=== PATIENT | female | born 1995 | race Hispanic/Latino ===

== ENCOUNTER 2020-02-12 03:27 | Emergency (ER) | payer SELFPAY ==
[2020-02-12 04:05] LABS: #Basophils 0.1 thou/uL (0.0-0.2); #Eosinphils 0.1 thou/uL (0.0-0.7); #Lymphocytes 3.3 thou/uL (1.20-3.40); #Monocytes 0.5 thou/uL (0.11-0.59); %Basophils 0.9 % (0.0-1.0); %Eosinophils 0.5 % (0.0-10.0); %Lymphocytes 27.7 % (21.0-51.0); %Monocytes 4.1 % (0.0-10.0); %Neutrophils 66.8 % (42.0-75.0); Mean Corpuscular HGB CONC 33.3 g/dL (32.0-36.0); Mean Corpuscular Volume 93.1 fL (78.0-98.0); Platelet Count 311 thou/uL (130-400); RBC Distribution Width 12.2 % (11.5-14.5); Red Blood Cell (RBC) Count 4.52 mill/uL (4.20-5.40)
[2020-02-12 04:15] LABS: BHCG - Serum Negative (NEGATIVE); Pregs Control Background? CLEAR/WHITE (CLR/WHITE); Pregs Control Bar Appear? YES (CONTROL BAR)
[2020-02-12 04:31] LABS: ALT (SGPT) 16 U/L (8-55); AST (SGOT) 20 U/L (5-34); Albumin 4.9 g/dL (3.5-5.0); Alkaline Phosphatase 80 U/L (40-110); Anion Gap 15 mmol/L (10-20); BUN (Urea Nitrogen) 8 mg/dL (7.0-18.7); Bilirubin, Total 0.5 mg/dL (0.2-1.2); Calc. Creatinine Clearance 0 mL/min (70-130); Calcium 9.8 mg/dL (7.8-10.44); Carbon Dioxide 25 mmol/L (22-29); Chloride 103 mmol/L (98-107); Estimated GFR-MDRD Greater than 90; Globulin 3.2 g/dL (2.4-3.5); Glucose 123 mg/dL (70-105); Protein, Total 8.1 g/dL (6.0-8.3); Sodium 140 mmol/L (136-145)
[2020-02-12 04:45] LABS: Thyroid Stimulating Hormone 0.5752 uIU/mL (0.35-4.94)
[2020-02-12 04:51] LABS: Potassium 2.7 mmol/L (3.5-5.1)
--- NOTE | 2020-02-12 07:54 | RAD ---
RADIOGRAPH CHEST 1 VIEW: DATE: 02/12/2020 HISTORY: 24-year-old female with chest pain and dyspnea FINDINGS: The visualized lung garcia are clear. The cardiomediastinal silhouette and hilar shadows are normal. The lateral costophrenic angles are sharp. The osseous structures appear normal. There is no pneumothorax. IMPRESSION: Negative.
[2020-02-12] MEDS ORDERED: Iopamidol 370 76% 100 ML VIAL ONE (09:44)
--- NOTE | 2020-02-12 14:54 | CT ---
PRELIMINARY REPORT/[facility]/EMERGENCY AFTER HOURS PROCEDURE: EXAM: CTA Chest with Intravenous Contrast CLINICAL HISTORY: PT C/O CHEST PAIN/SOB/SORE THROAT. TECHNIQUE: Axial CTA images of the chest with intravenous contrast. MIP reconstructed images were cre ated and reviewed. CONTRAST: With; ISOVUE 370,100mL COMPARISON: None provided. FINDINGS: PULMONARY ARTERIES There is no intraluminal filling defect suspicious for PE. AORTA No thoracic aortic aneurysm or dissection. LUNGS The lungs are clear. No pulmonary mass. No focal airspace consolidation. PLEURAL SPACES No pleural effusion. No pneumothorax. HEART AND MEDIASTINUM No cardiomegaly. No significant pericardial effusion. LYMPH NODES No lymphadenopathy. BONES No focal osseous abnormality or acute fracture. CHEST WALL AND UPPER ABDOMEN Images through the upper abdomen are unremarkable. The chest wall is u nremarkable. IMPRESSION: Unremarkable CTA of the chest. ELECTRONICALLY SIGNED BY: Millie Navarrete MD February 12, 2020 5:06:14 AM CDT FINAL REPORT: EMERGENT AFTER HOURS CT ANGIOGRAM THORAX WITH IV CONTRAST AND 3D RECONSTRUCTIONS: HISTORY: Chest pain, shortness of breath, and sore throat. COMPARISON: None. IMPRESSION: 1. No filling defects are seen in the pulmonary arteries to suggest a pulmonary embolus. 2. Thoracic aorta is normal in caliber without evidence of an aortic dissection. 3. Lungs are clear. 4. Findings are in agreement with the preliminary report by [facility]. Transcribed Date/Time: 02/12/2020 3:22 PM
--- NOTE | 2020-02-14 15:42 | EKG ---
Test Reason : Blood Pressure : / mmHG Vent. Rate : 134 BPM Atrial Rate : 134 BPM P-R Int : 128 ms QRS Dur : 074 ms QT Int : 296 ms P-R-T Axes : 057 072 027 degrees QTc Int : 442 ms Sinus tachycardia Possible Left atrial enlargement No STEMI Borderline ECG Confirmed by ANUM CID M.D. ([id number]), website/blog editor THERESA TORRES ([id number] on 02/14/2020 3:41:36 PM Referred By: Confirmed By:ANUM CID M.D.
== END 2020-02-12 06:40 | disposition home or self-care (01) ==
LOC: ERS 03:27
DX: R00.2 Palpitations (principal)
CPT/HCPCS: 71045; 71275; 80053; 84443; 84484; 84703; 85025; 93005; Q9967

== ENCOUNTER 2021-02-23 22:39 | Emergency (ER) | payer SELFPAY ==
[2021-02-23 23:49] LABS: #Basophils 0.1 thou/uL (0.0-0.2); #Eosinphils 0.3 thou/uL (0.0-0.7); #Lymphocytes 3.6 thou/uL (1.20-3.40); #Monocytes 0.5 thou/uL (0.11-0.59); %Basophils 0.6 % (0.0-1.0); %Eosinophils 2.2 % (0.0-10.0); %Lymphocytes 28.8 % (21.0-51.0); %Monocytes 4.3 % (0.0-10.0); %Neutrophils 64.1 % (42.0-75.0); Hemoglobin 13.5 g/dL (12.0-16.0); Mean Corpuscular HGB CONC 34.7 g/dL (32.0-36.0); Mean Corpuscular Hemoglobin 31.2 pg (27.0-31.0); Mean Corpuscular Volume 89.9 fL (78.0-98.0); Mean Platelet Volume 8.3 fL (7.4-10.4); Platelet Count 271 thou/uL (130-400); RBC Distribution Width 11.6 % (11.5-14.5); Red Blood Cell (RBC) Count 4.32 mill/uL (4.20-5.40); White Blood Cell (WBC) Count 12.5 thou/uL (4.8-10.8)
[2021-02-24 00:10] LABS: Bacteria/HPF None Seen HPF (None Seen); Bilirubin Negative (Negative); Blood, Urine 1+ (Negative); Clarity Clear (Clear); Glucose, Urine (Dipstick) Normal (Negative); Ketone, Urine Negative (Negative); Leukocyte Negative Leu/uL (Negative); Nitrite Negative (Negative); Protein, Urine (Dipstick) Negative (Neg-Trace); Specific Gravity, Urine 1.022 (1.002-1.036); Urobilinogen Normal mg/dL (Less than 2); WBC/HPF 0-3 HPF (0-3); pH, Urine 5.5 (5.0-9.0)
[2021-02-24 00:10] LABS: ALT (SGPT) 13 U/L (8-55); AST (SGOT) 20 U/L (5-34); Albumin 4.7 g/dL (3.5-5.0); Alkaline Phosphatase 92 U/L (40-110); Anion Gap 14 mmol/L (10-20); BUN (Urea Nitrogen) 10 mg/dL (7.0-18.7); Bilirubin, Total 0.2 mg/dL (0.2-1.2); Calc. Creatinine Clearance 0 mL/min (70-130); Calcium 10.4 mg/dL (7.8-10.44); Carbon Dioxide 23 mmol/L (22-29); Chloride 107 mmol/L (98-107); Globulin 3.2 g/dL (2.4-3.5); Glucose 99 mg/dL (70-105); Potassium 3.6 mmol/L (3.5-5.1); Protein, Total 7.9 g/dL (6.0-8.3); Sodium 140 mmol/L (136-145)
[2021-02-24 00:11] LABS: Pregnancy Test - Urine (BHCG) Negative (Negative); Pregu Control Background? CLEAR/WHITE (CLR/WHITE); Pregu Control Bar Appear? YES (CONTROL BAR); Specific Gravity 1.022 (1.002-1.036)
[2021-02-24] MEDS ORDERED: Ketorolac Tromethamine 30 MG/ML VIAL ONE (01:07)
[2021-02-24] MEDS ORDERED: Iopamidol-370 76% 500 ML 1 ML ONE (08:31)
== END 2021-02-24 02:54 | disposition home or self-care (01) ==
LOC: ERS 22:39
DX: R10.31 Right lower quadrant pain (principal); R10.32 Left lower quadrant pain
CPT/HCPCS: 36415; 74177; 80053; 81003; 81015; 81025; 85025; 96374; J1885; Q9967

== ENCOUNTER 2021-03-05 23:46 | Emergency (ER) | payer SELFPAY ==
[2021-03-06 00:17] LABS: Bilirubin Negative (Negative); Blood, Urine Small (Negative); Glucose, Urine (Dipstick) Negative (Negative); Ketone, Urine Negative (Negative); Leukocyte Negative (Negative); Nitrite Negative (Negative); Protein, Urine (Dipstick) Negative (Neg-Trace); pH, Urine 7.5 (5.0-9.0)
[2021-03-06 00:32] LABS: Clarity Clear (Clear)
[2021-03-06 00:36] LABS: Bacteria/HPF None Seen HPF (None Seen); Squamous Epithelial 0-3 HPF (0-3); WBC/HPF None Seen HPF (0-3)
[2021-03-06 01:45] LABS: Pregnancy Test - Urine (BHCG) Negative (Negative); Pregu Control Background? CLEAR/WHITE (CLR/WHITE); Pregu Control Bar Appear? YES (CONTROL BAR)
== END 2021-03-06 02:00 | disposition home or self-care (01) ==
LOC: ERS 23:46
DX: R30.0 Dysuria (principal)
CPT/HCPCS: 81003; 81015; 81025; 99283

== ENCOUNTER 2021-03-26 00:18 | Emergency (ER) | payer SELFPAY ==
[2021-03-26 00:52] LABS: #Basophils 0.1 thou/uL (0.0-0.2); #Eosinphils 0.2 thou/uL (0.0-0.7); #Lymphocytes 2.8 thou/uL (1.20-3.40); #Monocytes 0.6 thou/uL (0.11-0.59); #Neutrophils 7.7 thou/uL (1.40-6.50); %Basophils 0.6 % (0.0-1.0); %Eosinophils 1.9 % (0.0-10.0); %Lymphocytes 24.9 % (21.0-51.0); %Neutrophils 67.6 % (42.0-75.0); Hemoglobin 14.1 g/dL (12.0-16.0); Mean Corpuscular HGB CONC 34.8 g/dL (32.0-36.0); Mean Corpuscular Hemoglobin 31.4 pg (27.0-31.0); Mean Corpuscular Volume 90.5 fL (78.0-98.0); Mean Platelet Volume 7.8 fL (7.4-10.4); Platelet Count 282 thou/uL (130-400); RBC Distribution Width 11.8 % (11.5-14.5); Red Blood Cell (RBC) Count 4.48 mill/uL (4.20-5.40); White Blood Cell (WBC) Count 11.3 thou/uL (4.8-10.8)
[2021-03-26 01:13] LABS: BHCG - Serum Negative (NEGATIVE); Pregs Control Background? CLEAR/WHITE (CLR/WHITE); Pregs Control Bar Appear? YES (CONTROL BAR)
[2021-03-26 01:16] LABS: ALT (SGPT) 12 U/L (8-55); AST (SGOT) 22 U/L (5-34); Albumin 4.6 g/dL (3.5-5.0); Alkaline Phosphatase 83 U/L (40-110); Anion Gap 17 mmol/L (10-20); BUN (Urea Nitrogen) 9 mg/dL (7.0-18.7); Bilirubin, Total 0.3 mg/dL (0.2-1.2); Calc. Creatinine Clearance 0 mL/min (70-130); Calcium 10.1 mg/dL (7.8-10.44); Carbon Dioxide 22 mmol/L (22-29); Chloride 105 mmol/L (98-107); Globulin 3.3 g/dL (2.4-3.5); Glucose 133 mg/dL (70-105); Potassium 3.6 mmol/L (3.5-5.1); Protein, Total 7.9 g/dL (6.0-8.3); Sodium 140 mmol/L (136-145)
[2021-03-26 04:39] LABS: Bacteria/HPF None Seen HPF (None Seen); Bilirubin Negative (Negative); Blood, Urine 1+ (Negative); Clarity Clear (Clear); Glucose, Urine (Dipstick) Normal (Negative); Ketone, Urine Negative (Negative); Leukocyte Negative Leu/uL (Negative); Nitrite Negative (Negative); Protein, Urine (Dipstick) Negative (Neg-Trace); RBC/HPF 0-3 HPF (0-3); Specific Gravity, Urine 1.026 (1.002-1.036); Squamous Epithelial 0-3 HPF (0-3); Urobilinogen Normal mg/dL (Less than 2); WBC/HPF 0-3 HPF (0-3); pH, Urine 5.5 (5.0-9.0)
== END 2021-03-26 05:36 | disposition home or self-care (01) ==
LOC: ERS 00:18
DX: R10.30 Lower abdominal pain, unspecified (principal)
CPT/HCPCS: 36415; 80053; 81003; 81015; 84703; 85025; 99284

== ENCOUNTER 2022-03-06 22:47 | Emergency (ER) | payer SELFPAY ==
[2022-03-06] MEDS ORDERED: Ibuprofen 200 MG TAB ONE (23:20)
[2022-03-06 23:47] LABS: Bilirubin Negative (Negative); Blood, Urine Negative (Negative); Clarity Clear (Clear); Glucose, Urine (Dipstick) Normal (Negative); Ketone, Urine Negative (Negative); Leukocyte Negative Leu/uL (Negative); Nitrite Negative (Negative); Protein, Urine (Dipstick) Negative (Neg-Trace); Specific Gravity, Urine 1.005 (1.002-1.036); Urobilinogen Normal mg/dL (Less than 2)
== END 2022-03-07 00:36 | disposition home or self-care (01) ==
LOC: ERS 22:47
DX: N89.8 Other specified noninflammatory disorders of vagina (principal); M54.50 Low back pain, unspecified; R30.0 Dysuria
CPT/HCPCS: 81003; 99284

== ENCOUNTER 2022-07-02 18:37 | Emergency (ER) | payer SELFPAY ==
[2022-07-02 19:15] LABS: #Basophils 0.1 thou/uL (0.0-0.2); #Eosinphils 0.2 thou/uL (0.0-0.7); #Lymphocytes 3.9 thou/uL (1.20-3.40); #Monocytes 0.6 thou/uL (0.11-0.59); #Neutrophils 8.2 thou/uL (1.40-6.50); %Basophils 0.6 % (0.0-1.0); %Eosinophils 1.6 % (0.0-10.0); %Lymphocytes 30.1 % (21.0-51.0); %Monocytes 4.8 % (0.0-10.0); %Neutrophils 62.9 % (42.0-75.0); Hemoglobin 13.8 g/dL (12.0-16.0); Mean Corpuscular HGB CONC 33.3 g/dL (32.0-36.0); Mean Corpuscular Hemoglobin 30.3 pg (27.0-31.0); Mean Corpuscular Volume 91.1 fL (78.0-98.0); Mean Platelet Volume 8.4 fL (7.4-10.4); Platelet Count 301 thou/uL (130-400); RBC Distribution Width 11.9 % (11.5-14.5); Red Blood Cell (RBC) Count 4.54 mill/uL (4.20-5.40); White Blood Cell (WBC) Count 13.1 thou/uL (4.8-10.8)
[2022-07-02 19:21] LABS: Bilirubin Negative (Negative); Blood, Urine Trace (Negative); Clarity Clear (Clear); Glucose, Urine (Dipstick) Normal (Negative); Ketone, Urine Negative (Negative); Leukocyte 500 Leu/uL (Negative); Nitrite Negative (Negative); Protein, Urine (Dipstick) Negative (Neg-Trace); Specific Gravity, Urine 1.013 (1.002-1.036); Urobilinogen Normal mg/dL (Less than 2); pH, Urine 6.5 (5.0-9.0)
[2022-07-02 19:22] LABS: Bacteria/HPF 1+ HPF (None Seen); RBC/HPF 0-3 HPF (0-3); Sperm/HPF Rare HPF (None Seen)
[2022-07-02 19:23] LABS: Pregnancy Test - Urine (BHCG) Negative (Negative); Pregu Control Background? CLEAR/WHITE (CLR/WHITE); Pregu Control Bar Appear? YES (CONTROL BAR); Specific Gravity 1.013 (1.002-1.036)
[2022-07-02 19:33] LABS: ALT (SGPT) 54 U/L (8-55); AST (SGOT) 38 U/L (5-34); Albumin 4.4 g/dL (3.5-5.0); Alkaline Phosphatase 80 U/L (40-110); Anion Gap 12 mmol/L (10-20); BUN (Urea Nitrogen) 8 mg/dL (7.0-18.7); Bilirubin, Total 0.4 mg/dL (0.2-1.2); Calc. Creatinine Clearance 0 mL/min (70-130); Calcium 9.5 mg/dL (7.8-10.44); Carbon Dioxide 24 mmol/L (22-29); Chloride 106 mmol/L (98-107); Estimated GFR 126; Globulin 3.3 g/dL (2.4-3.5); Glucose 88 mg/dL (70-105); Potassium 3.5 mmol/L (3.5-5.1); Protein, Total 7.7 g/dL (6.0-8.3); Sodium 138 mmol/L (136-145)
== END 2022-07-02 22:50 | disposition home or self-care (01) ==
LOC: ERS 18:37
DX: N30.90 Cystitis, unspecified without hematuria (principal)
CPT/HCPCS: 36415; 76856; 80053; 81003; 81015; 81025; 84702; 85025

== ENCOUNTER 2023-04-25 04:34 | Emergency (ER) | payer SELFPAY ==
[2023-04-25 05:57] LABS: #Basophils 0.1 thou/uL (0.0-0.2); #Eosinphils 0.4 thou/uL (0.0-0.7); #Monocytes 0.7 thou/uL (0.11-0.59); #Neutrophils 8.9 thou/uL (1.40-6.50); %Basophils 0.4 % (0.0-1.0); %Eosinophils 2.8 % (0.0-10.0); %Lymphocytes 23.4 % (21.0-51.0); %Neutrophils 68.1 % (42.0-75.0); Hemoglobin 14.1 g/dL (12.0-16.0); Mean Corpuscular Hemoglobin 30.5 pg (27.0-31.0); Mean Corpuscular Volume 89.8 fl (78.0-98.0); Mean Platelet Volume 10.8 fL (7.4-10.4); Platelet Count 306 10x3/uL (130-400); RBC Distribution Width 13.2 % (11.5-14.5); Red Blood Cell (RBC) Count 4.62 mill/uL (4.20-5.40); White Blood Cell (WBC) Count 13.1 10x3/uL (4.8-10.8)
[2023-04-25 06:09] LABS: BHCG - Serum POSITIVE (NEGATIVE); Pregs Control Background? CLEAR/WHITE (CLR/WHITE); Pregs Control Bar Appear? YES (CONTROL BAR)
[2023-04-25 06:22] LABS: ALT (SGPT) 13 U/L (8-55); AST (SGOT) 22 U/L (5-34); Albumin 4.6 g/dL (3.5-5.0); Alkaline Phosphatase 67 U/L (40-110); Anion Gap 14 mmol/L (10-20); BUN (Urea Nitrogen) 5 mg/dL (7.0-18.7); Bilirubin, Total 0.3 mg/dL (0.2-1.2); Calc. Creatinine Clearance 0 mL/min (70-130); Calcium 9.3 mg/dL (7.8-10.44); Carbon Dioxide 20 mmol/L (22-29); Chloride 107 mmol/L (98-107); Estimated GFR 128; Globulin 3.3 g/dL (2.4-3.5); Glucose 89 mg/dL (70-105); Lipase 26 U/L (8-78); Potassium 3.6 mmol/L (3.5-5.1); Protein, Total 7.9 g/dL (6.0-8.3); Sodium 137 mmol/L (136-145)
[2023-04-25 07:40] LABS: Bacteria/HPF None Seen HPF (None Seen); Bilirubin Negative (Negative); Blood, Urine Negative (Negative); CAUTI Indications for Culture Pelvic or flank pain; Clarity Clear (Clear); Glucose, Urine (Dipstick) Normal (Negative); Ketone, Urine Trace mg/dL (Negative); Leukocyte Negative Leu/uL (Negative); Mucous/LPF Rare LPF (<2+); Nitrite Negative (Negative); Protein, Urine (Dipstick) 10 mg/dL (Neg-Trace); Specific Gravity, Urine 1.021 (1.002-1.036); Urobilinogen Normal mg/dL (Less than 2); WBC/HPF 0-3 HPF (0-3)
[2023-04-25 07:46] LABS: Sperm/HPF 1+ HPF (None Seen)
[2023-04-25 07:47] LABS: Urine Culture Reflex No No
== END 2023-04-25 08:16 | disposition home or self-care (01) ==
LOC: ERS 04:34
DX: O99.611 Diseases of the digestive system complicating pregnancy, first trimester (principal); Z3A.00 Weeks of gestation of pregnancy not specified
CPT/HCPCS: 36415; 80053; 81001; 83690; 84702; 84703; 85025; 99284

== ENCOUNTER 2023-10-22 01:57 | Emergency (ER) | payer SELFPAY ==
[2023-10-22] MEDS ORDERED: Acetaminophen 500 MG TAB ONE (02:44)
[2023-10-22 03:51] LABS: #Eosinphils 0.1 thou/uL (0.0-0.7); #Monocytes 0.8 thou/uL (0.11-0.59); #Neutrophils 7.8 thou/uL (1.40-6.50); %Basophils 0.4 % (0.0-1.0); %Lymphocytes 22.9 % (21.0-51.0); %Monocytes 6.6 % (0.0-10.0); %Neutrophils 68.6 % (42.0-75.0); Hemoglobin 10.9 g/dL (12.0-16.0); Mean Corpuscular Hemoglobin 28.8 pg (27.0-31.0); Mean Corpuscular Volume 87.1 fl (78.0-98.0); Mean Platelet Volume 11.1 fL (7.4-10.4); Platelet Count 274 10x3/uL (130-400); RBC Distribution Width 12.9 % (11.5-14.5); Red Blood Cell (RBC) Count 3.79 mill/uL (4.20-5.40); White Blood Cell (WBC) Count 11.4 10x3/uL (4.8-10.8)
[2023-10-22 03:55] LABS: Bacteria/HPF 2+ HPF (None Seen); Bilirubin Negative (Negative); Blood, Urine Negative (Negative); CAUTI Indications for Culture Pelvic or flank pain; Clarity Clear (Clear); Glucose, Urine (Dipstick) Normal (Negative); Ketone, Urine Negative (Negative); Leukocyte Negative Leu/uL (Negative); Nitrite Negative (Negative); Protein, Urine (Dipstick) Negative (Neg-Trace); RBC/HPF None Seen HPF (0-3); Specific Gravity, Urine 1.004 (1.002-1.036); Squamous Epithelial 0-3 HPF (0-3); Urobilinogen Normal mg/dL (Less than 2); WBC/HPF 0-3 HPF (0-3); pH, Urine 6.5 (5.0-9.0)
[2023-10-22 03:57] LABS: Urine Culture Reflex No No
[2023-10-22 04:50] LABS: Albumin 3.2 g/dL (3.5-5.0)
[2023-10-22 04:52] LABS: Calcium 8.7 mg/dL (7.8-10.44); Chloride 108 mmol/L (98-107); Potassium 3.8 mmol/L (3.5-5.1); Sodium 137 mmol/L (136-145)
[2023-10-22 04:53] LABS: Globulin 3.1 g/dL (2.4-3.5); Glucose 96 mg/dL (70-105); Protein, Total 6.3 g/dL (6.0-8.3)
[2023-10-22 04:54] LABS: Carbon Dioxide 22 mmol/L (22-29)
[2023-10-22 04:55] LABS: Bilirubin, Total 0.2 mg/dL (0.2-1.2)
[2023-10-22 04:56] LABS: Alkaline Phosphatase 179 U/L (40-110); Calc. Creatinine Clearance 0 mL/min (70-130); Estimated GFR 128
[2023-10-22 04:57] LABS: BUN (Urea Nitrogen) 6 mg/dL (7.0-18.7)
[2023-10-22 04:58] LABS: AST (SGOT) 17 U/L (5-34)
[2023-10-22 04:59] LABS: ALT (SGPT) 8 U/L (8-55); Lipase 29 U/L (8-78)
[2023-10-22 05:47] LABS: Anion Gap 11 mmol/L (10-20)
== END 2023-10-22 05:05 | disposition home or self-care (01) ==
LOC: ERS 01:57
DX: O23.43 Unspecified infection of urinary tract in pregnancy, third trimester (principal); N39.0 Urinary tract infection, site not specified; Z3A.00 Weeks of gestation of pregnancy not specified
CPT/HCPCS: 36415; 80053; 81001; 83690; 85025; 99284